=== PATIENT | female | born 1960 | race Caucasian/White ===

== ENCOUNTER 2024-08-20 13:50 | Outpatient (AMB) | payer OTHER, SELFPAY ==
--- NOTE | 2024-08-20 14:53 | AM.OFFWIN_ITS ---
Intake Vital Signs 08/20/24 14:54 Weight 255 lb BP 110/78 Blood Pressure Location Rt brachial Position Sitting Pulse 70 Pulse Source Pulse Oximeter Temp 98.2 F Temp Source Oral Pulse Oximetry (%) 96 Oxygen Delivery Method Room Air Intake Visit Reasons: EP Sore throat Intake Note: Patient here for sore throat and fatigue that has been present since . Patient Tobacco Use Status: Never used Tobacco Allergies Sulfa (Sulfonamide Antibiotics) [SULFA(SULFONAMIDE ANTIBIOTICS)] Allergy (Unknown, Unverified 08/20/24 14:53) RASH From [facility] Allergy (Unknown, Uncoded 08/20/24 14:53) UNKNOWN Do you need a note to return to daycare/school/sports/work: Yes HPI HPI Comments History of Present Illness Details History - The patient is a 64-year-old female pr esenting with upper respiratory symptoms. - Symptoms started on Tuesday, with not able worsening by yesterday. - She reports a cough induced by postnas al drip, resulting in a raw throat sensation. - Experienced a low-grade fever last nig ht, relieved temporarily by Tylenol. - Complains of fatigue, swollen lymph no tati, and mild ear fullness, but no significant pain or dysphagia. 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 - She reports prior RSV infection but be lieves current symptoms are not similar. Physical Exam General: Cooperative, healthy appearing, comfortable and no acute distress Orientation/consciousness: Patient oriented x3 Limitations: No limitations Head: Normal to inspection Ears: Hearing grossly normal bilaterally, external ears normal and TM's normal bilaterally Nose: Normal external nose present, Normal nares present and No nasal discharge present Face and sinus: Normal facial exam and Yes sinuses nontender Mouth: Normal oral and palatal mucosa present and moist mucous membranes Throat: Yes tonsils normal, Yes uvula midline. Posterior oropharynx erythema, no exudates noted Eyes: Appearance normal, both eyes and all related structures Neck: Normal visual inspection, lymphadenopathy Respiratory: Clear to auscultation bilaterally. Normal respiratory effort, able to speak in complete sentences, no respiratory distress, not tachypneic, no tripod positioning and no use of accessory muscles Cardiovascular: Regular rate and rhythm. Normal S1 and S2 Skin: No rashes or lesions noted Neuro: Patient oriented x3 Extremities: Normal to inspection and Yes no clubbing, cyanosis or edema PFSH Social History Patient Tobacco Use Status: Never used Tobacco Review of Systems Const All systems reviewed & are unremarkable except as noted in HPI and below Physical Exam Vital Signs: Last Vital Signs Temp 98.2 F 08/20/24 14:54 Pulse 70 08/20/24 14:54 BP 110/78 08/20/24 14:54 Pulse Ox 96 08/20/24 14:54 Oxygen Delivery Method Room Air 08/20/24 14:54 Assessment & Plan Assessment & Plan (1) URI, acute: Code(s): J06.9 - Acute upper respiratory infection, unspecified Plan: VSS, pt well appearing and PE unremarkable. I investigated potential causes of the patient's upper respiratory symptoms, considering her occupational exposure and medical history. A negative rapid strep test required further cultures to confirm or exclude streptococcal infection accurately due to known limitations and no exudates on exam. Nasal swabs for influenza, SARS-CoV-2, and RSV were collected to evaluate viral causes comprehensively. Until definitive test results are obtained, I recommended ibuprofen 600 mg every six hours and alternating acetaminophen one gram every eight hours for symptomatic management, with careful consideration of her medical background, including her Bruno RSV infection, to guide potential differential diagnoses. Patient was informed and verbally consented to the use of an ambient scribe for clinic note documentation during this visit. Orders: Orders SARS-CoV2/FLU/RSV Today R09.89 - Other specified symptoms and signs involving the circulatory and respiratory systems Coding Level of Care Code New Pt Level 3 (90046) Diagnoses URI, acute J06.9
[2024-08-20 14:54] VITALS: BP 110/78; PULSE 70; TEMP 36.8; O2SAT 96
== END 2024-08-20 15:40 | disposition home or self-care (01) ==
PROVIDERS: PCP Internal Medicine; Visit Provider Physician Assistant
DX: Z13.9 Encounter for screening, unspecified (principal); J06.9 Acute upper respiratory infection, unspecified

== ENCOUNTER 2024-08-20 13:50 | Outpatient (REF) | payer OTHER, SELFPAY | END 2024-08-20 13:51 | disposition home or self-care (01) | LOC: HO.LAB 13:50 | PROVIDERS: PCP Internal Medicine | DX: J06.9 Acute upper respiratory infection, unspecified (principal) | CPT/HCPCS: 87880 ==

== ENCOUNTER 2024-08-20 15:46 | Outpatient (REF) | payer OTHER, SELFPAY ==
[2024-08-21 11:30] LABS: Influenza A PCR NEGATIVE (Negative); Influenza B PCR NEGATIVE (Negative); Resp Syncy Virus RNA Qual PCR NEGATIVE (Negative); SARS COV2 PCR INHOUSE NEGATIVE (Negative)
== END 2024-08-20 15:47 | disposition home or self-care (01) ==
LOC: HO.LNP 15:46
PROVIDERS: Visit Provider Physician Assistant
DX: R09.89 Other specified symptoms and signs involving the circulatory and respiratory systems (principal); R50.9 Fever, unspecified
CPT/HCPCS: 0241U; 87070; 87147